=== PATIENT | male | born 1965 | race Caucasian/White ===

== ENCOUNTER 2020-10-03 08:32 | Emergency (ER) | payer BC ==
[~2020-10-03] VITALS: Ht 187.9 cm; Wt 93.0 kg
== END 2020-10-03 12:15 | disposition home or self-care (01) ==
LOC: ED 08:32
DX: S62.002A Unspecified fracture of navicular [scaphoid] bone of left wrist, initial encounter for closed fracture (principal); W19.XXXA Unspecified fall, initial encounter; Y93.89 Activity, other specified; Y92.89 Other specified places as the place of occurrence of the external cause; Y99.8 Other external cause status

== ENCOUNTER → 2020-10-05 | Outpatient (CLI) | payer BC ==
[2020-10-05 13:32] LABS: BASO # 0.1 10*3/uL (0.0-0.1); BASO % 0.7 % (0.0-1.0); EOS # 0.3 10*3/uL (0.0-0.4); EOS % 4.1 % (1.0-4.0); HEMATOCRIT 40.9 % (42.0-52.0); LYMPH # 1.5 10*3/uL (1.3-4.4); LYMPH % 21.1 % (27.0-41.0); MEAN CELL VOLUME 90.3 fl (80.0-94.0); MEAN CORPUSCULAR HGB 31.6 pg (27.0-31.0); MEAN PLATELET VOLUME 10.6 fl (9.6-12.3); MONO # 0.6 10*3/uL (0.1-1.0); MONO % 9.1 % (3.0-9.0); NEUT # 4.6 10*3/uL (2.3-7.9); NEUT % 64.7 % (47.0-73.0); PLATELET COUNT AUTOMATED 244 10*3/uL (130-400); RED BLOOD COUNT 4.53 10*6/uL (4.50-5.90); RED CELL DISTRI WIDTH 12.1 % (0-14.5); WHITE BLOOD COUNT 7.1 10*3/uL (4.8-10.8)
[2020-10-05 13:49] LABS: ALBUMIN 3.7 gm/dl (3.1-4.5); ALKALINE PHOSPHATASE 65 U/L (45-117); BUN 14 mg/dl (7-24); CHLORIDE 108 mmol/L (98-107); CHOLESTEROL 174 mg/dL (<200); CREATININE 0.91 mg/dL (0.70-1.30); FREE T4 1.16 ng/dl (0.76-1.46); LDL CHOLESTEROL 118 mg/dL (9-159); POTASSIUM 4.1 mmol/L (3.5-5.1); SGOT/AST 11 IU/L (3-35); SGPT/ALT 19 U/L (12-78); SODIUM 142 mmol/L (136-145); TOTAL PROTEIN 6.9 gm/dL (6.4-8.2); TRIGLYCERIDES 100 mg/dl (<150)
[2020-10-05 14:45] LABS: VITAMIN D, 25-HYDROXY 26.8 ng/mL (30-100)
== END | disposition home or self-care (01) ==
LOC: LAB 13:15
PROVIDERS: ATTEND Internal Medicine
DX: Z12.5 Encounter for screening for malignant neoplasm of prostate (principal); Z13.0 Encounter for screening for diseases of the blood and blood-forming organs and certain disorders involving the immune mechanism; Z13.21 Encounter for screening for nutritional disorder; Z13.220 Encounter for screening for lipoid disorders; Z13.6 Encounter for screening for cardiovascular disorders; Z13.89 Encounter for screening for other disorder; Z13.9 Encounter for screening, unspecified; Z83.3 Family history of diabetes mellitus

== ENCOUNTER → 2020-11-23 | Outpatient (CLI) | payer BC ==
[~2020-11-23] MED LIST: OSTERA TABLET1 EACH PO; TOPROL XL100 MG PO
[2020-11-23 13:38] LABS: CHLORIDE 113 mmol/L (98-107); POTASSIUM 3.9 mmol/L (3.5-5.1); SODIUM 142 mmol/L (136-145)
[2020-11-23 13:43] LABS: BUN 11 mg/dl (7-24); CREATININE 0.75 mg/dL (0.70-1.30)
== END | disposition home or self-care (01) ==
LOC: LAB 12:17
PROVIDERS: ATTEND Orthopaedic Surgery
DX: Z01.812 Encounter for preprocedural laboratory examination (principal); Z20.822 Contact with and (suspected) exposure to COVID-19

== ENCOUNTER → 2020-11-28 | Day surgery (SDC) | payer BC ==
[~2020-11-28] VITALS: Ht 187.9 cm; Wt 93.0 kg
[2020-11-28 09:00] VITALS: BP 129/87
[2020-11-28 10:41] VITALS: BP 119/75
[2020-11-28 10:56] VITALS: BP 120/73
== END | disposition home or self-care (01) ==
LOC: SDC 11-23 11:00
PROVIDERS: ATTEND Orthopaedic Surgery
DX: G56.02 Carpal tunnel syndrome, left upper limb (principal); I10 Essential (primary) hypertension; M19.90 Unspecified osteoarthritis, unspecified site; Z79.899 Other long term (current) drug therapy

== ENCOUNTER → 2022-01-11 | Outpatient (CLI) | payer BC ==
[2022-01-11 10:26] LABS: BASO # 0.1 10*3/uL (0.0-0.1); EOS # 0.3 10*3/uL (0.0-0.4); EOS % 4.9 % (1.0-4.0); LYMPH # 1.5 10*3/uL (1.3-4.4); LYMPH % 23.9 % (27.0-41.0); MEAN CELL VOLUME 92.1 fl (80.0-94.0); MEAN CORPUSCULAR HGB 32.3 pg (27.0-31.0); MEAN CORPUSCULAR HGB CONC 35.1 g/dl (33.0-37.0); MEAN PLATELET VOLUME 10.8 fl (9.6-12.3); MONO # 0.4 10*3/uL (0.1-1.0); MONO % 6.7 % (3.0-9.0); NEUT # 3.9 10*3/uL (2.3-7.9); NEUT % 63.2 % (47.0-73.0); PLATELET COUNT AUTOMATED 222 10*3/uL (130-400); RED BLOOD COUNT 4.67 10*6/uL (4.50-5.90); RED CELL DISTRI WIDTH 12.2 % (0-14.5); WHITE BLOOD COUNT 6.1 10*3/uL (4.8-10.8)
[2022-01-11 10:44] LABS: BUN 15 mg/dl (7-24); CHLORIDE 112 mmol/L (98-107); CHOLESTEROL 183 mg/dL (<200); CREATININE 0.93 mg/dL (0.70-1.30); POTASSIUM 4.4 mmol/L (3.5-5.1); SGOT/AST 14 IU/L (3-35); SGPT/ALT 22 U/L (12-78); SODIUM 141 mmol/L (136-145); T3 UPTAKE 35 % (31-39); TOTAL PROTEIN 7.1 gm/dL (6.4-8.2); TRIGLYCERIDES 84 mg/dl (<150)
[2022-01-11 10:49] LABS: ALKALINE PHOSPHATASE 62 U/L (45-117); LDL CHOLESTEROL 122 mg/dL (9-159); THYROXINE (T4) TOTAL 10.7 ug/dl (4.5-12.1)
[2022-01-11 11:16] LABS: VITAMIN D, 25-HYDROXY 81.5 ng/mL (30-100)
== END | disposition home or self-care (01) ==
LOC: LAB 10:12
PROVIDERS: ATTEND Internal Medicine
DX: Z12.5 Encounter for screening for malignant neoplasm of prostate (principal); Z00.00 Encounter for general adult medical examination without abnormal findings; I10 Essential (primary) hypertension; E55.9 Vitamin D deficiency, unspecified; Z13.1 Encounter for screening for diabetes mellitus; Z13.89 Encounter for screening for other disorder

== ENCOUNTER → 2022-01-30 | Outpatient (CLI) | payer BC | END | disposition home or self-care (01) | LOC: CARD 07:30 | PROVIDERS: ATTEND Internal Medicine | DX: R06.02 Shortness of breath (principal) ==

== ENCOUNTER → 2024-06-09 | Outpatient (CLI) | payer BC | END | disposition home or self-care (01) | LOC: RAD 07:41 | PROVIDERS: ATTEND Internal Medicine | DX: M17.12 Unilateral primary osteoarthritis, left knee (principal); M25.562 Pain in left knee ==